=== PATIENT | male | born 1990 | race Caucasian/White ===

== ENCOUNTER → 2016-06-15 | Outpatient (CLI) | payer OTHER ==
[~2016-06-15] MED LIST: DIPH25CA PO
[2016-06-15 13:17] LABS: FREE T4 1.12 NG/DL (0.76-1.46)
== END | disposition home or self-care (01) ==
LOC: M WUC 09:36
PROVIDERS: ATTEND Physician Assistant Medical
DX: F43.23 Adjustment disorder with mixed anxiety and depressed mood (principal)

== ENCOUNTER 2016-08-11 00:11 | Emergency (ER) | payer OTHER ==
[~2016-08-11] VITALS: Ht 177.8 cm; Wt 61.2 kg
[2016-08-11 00:16] VITALS: BP 116/75
[2016-08-11] MEDS ORDERED: LORA2TAB9 (00:27)
[2016-08-11] MEDS ORDERED: CELE20TA PO (00:27)
[2016-08-11] MEDS ORDERED: IBUPROFEN 800 MG TAB PO ONE (00:45)
--- NOTE | 2016-08-11 07:45 | REP ---
Clinical: Trauma. Technique: Curiel and bilateral lateral views of the nasal bones. Findings: Nasal septum is midline. Nasal bones appear intact without acute fracture or dislocation. Overlying soft tissues are grossly unremarkable. Impression: No acute nasal bone fracture identified. Signed by Rodolfo Muniz MD 08/11/2016 07:37 A
== END 2016-08-11 01:11 | disposition home or self-care (01) ==
LOC: M ED 00:59
DX: S00.83XA Contusion of other part of head, initial encounter (principal); W22.8XXA Striking against or struck by other objects, initial encounter; Y92.198 Other place in other specified residential institution as the place of occurrence of the external cause; Y93.89 Activity, other specified; Y99.0 Civilian activity done for income or pay; Z87.820 Personal history of traumatic brain injury; F17.210 Nicotine dependence, cigarettes, uncomplicated; Z88.0 Allergy status to penicillin

== ENCOUNTER 2016-10-16 18:50 | Emergency (ER) | payer OTHER ==
[~2016-10-16] VITALS: Ht 177.8 cm; Wt 61.2 kg
[~2016-10-16 18:50] MED LIST changes: +CELE20TA PO; +LORA2TAB9
[2016-10-16 18:51] VITALS: BP 136/83
[2016-10-16] MEDS ORDERED: metroNIDAZOLE (FLAGYL) 500 MG TAB PO ONE (19:30)
[2016-10-16] MEDS ORDERED: BACTRIM 160MG/800MG DS TAB PO ONE (19:30)
[2016-10-16] MEDS ORDERED: NAPROXEN 250 MG TAB PO ONE (19:30)
[2016-10-16] MEDS ORDERED: FLAG500T PO (19:31)
[2016-10-16] MEDS ORDERED: BACT800T5 PO (19:31)
[2016-10-16] MEDS ORDERED: NAPR500T PO (19:31)
== END 2016-10-16 19:49 | disposition home or self-care (01) ==
LOC: M ED 19:33
DX: S51.851A Open bite of right forearm, initial encounter (principal); W50.3XXA Accidental bite by another person, initial encounter; Y92.10 Unspecified residential institution as the place of occurrence of the external cause; Y93.89 Activity, other specified; Y99.0 Civilian activity done for income or pay; F17.200 Nicotine dependence, unspecified, uncomplicated; Z79.899 Other long term (current) drug therapy; Z88.0 Allergy status to penicillin

== ENCOUNTER → 2016-10-29 | Outpatient (REF) | payer OTHER ==
[~2016-10-29] MED LIST changes: +BACT800T5 PO; +FLAG500T PO; +NAPR500T PO
== END ==
LOC: M LAB REF 15:05
PROVIDERS: ATTEND Physician Assistant Medical
DX: R19.7 Diarrhea, unspecified (principal)

== ENCOUNTER 2016-12-21 06:26 | Emergency (ER) | payer OTHER ==
[~2016-12-21] VITALS: Ht 177.8 cm; Wt 61.4 kg
[2016-12-21] MEDS ORDERED: FLUORESCEIN OPHTH 1 MG STRIP OS ONE (08:00)
[2016-12-21] MEDS ORDERED: TETRACAINE 0.5% OPHTH SOLN 4ML OS ONE (08:00)
[2016-12-21 08:30] VITALS: BP 116/72
[2016-12-21] MEDS ORDERED: CIPROFLOXACIN 0.3% OPHTH OINTMENT OS ONE (08:30)
[2016-12-21] MEDS ORDERED: CIPROFLOXACIN 0.3% OPHTH SOLN 2.5ML OS ONE (08:45)
== END 2016-12-21 08:51 | disposition home or self-care (01) ==
LOC: M ED 06:26
DX: S05.02XA Injury of conjunctiva and corneal abrasion without foreign body, left eye, initial encounter (principal); X58.XXXA Exposure to other specified factors, initial encounter; Y92.828 Other wilderness area as the place of occurrence of the external cause; Y93.89 Activity, other specified; Y99.8 Other external cause status; Z87.820 Personal history of traumatic brain injury; F99 Mental disorder, not otherwise specified; F17.210 Nicotine dependence, cigarettes, uncomplicated; Z88.0 Allergy status to penicillin; Z79.899 Other long term (current) drug therapy

== ENCOUNTER 2017-01-25 11:18 | Emergency (ER) | payer OTHER ==
[~2017-01-25] VITALS: Ht 177.8 cm; Wt 61.3 kg
[2017-01-25 11:18] VITALS: BP 128/81
[2017-01-25] MEDS ORDERED: PEPT262T2 PO (11:29)
[2017-01-25] MEDS ORDERED: LOPE2TAB5 PO (11:29)
[2017-01-25] MEDS ORDERED: ONDANSETRON 4 MG ORAL DISINTEGRATING TAB (S0181) PO ONE (12:15)
[2017-01-25] MEDS ORDERED: GI COCKTAIL 50ML BTL(HYOSCYAMINE/MAALOX/LIDOCAINE VISCOUS)(1:3:1) PO ONE (12:15)
[2017-01-25] MEDS ORDERED: ZOFR4TAB3 PO (12:55)
== END 2017-01-25 13:17 | disposition home or self-care (01) ==
LOC: M ED 11:18
DX: K52.9 Noninfective gastroenteritis and colitis, unspecified (principal); F32.9 Major depressive disorder, single episode, unspecified; Z87.820 Personal history of traumatic brain injury; Z87.19 Personal history of other diseases of the digestive system; F17.210 Nicotine dependence, cigarettes, uncomplicated; Z88.0 Allergy status to penicillin; Z79.899 Other long term (current) drug therapy

== ENCOUNTER 2017-04-06 18:29 | Emergency (ER) | payer OTHER ==
[~2017-04-06] VITALS: Ht 177.8 cm; Wt 63.6 kg
[~2017-04-06 18:29] MED LIST changes: +LOPE2TAB5 PO; +PEPT262T2 PO; +ZOFR4TAB3 PO
[2017-04-06 21:35] VITALS: BP 125/74
== END 2017-04-06 21:39 | disposition home or self-care (01) ==
LOC: M ED 18:29
DX: S01.511A Laceration without foreign body of lip, initial encounter (principal); W50.1XXA Accidental kick by another person, initial encounter; Y92.199 Unspecified place in other specified residential institution as the place of occurrence of the external cause; Y93.F9 Activity, other caregiving; Y99.0 Civilian activity done for income or pay; F41.9 Anxiety disorder, unspecified; F33.9 Major depressive disorder, recurrent, unspecified; F17.210 Nicotine dependence, cigarettes, uncomplicated; Z88.0 Allergy status to penicillin; Z87.820 Personal history of traumatic brain injury

== ENCOUNTER 2017-11-23 06:03 | Inpatient (IN) | payer SELFPAY, OTHER ==
[2017-11-23] MEDS: NS 1,000 ML IV ×6 (06:15→22:45)
[2017-11-23 06:27] LABS: ABG O2 SATURATION 75.4 % (95.0-99.0); ABG STANDARD HCO3 18.4 MEQ/L (22.0-26.0); ABG TOTAL CO2 27.5 MEQ/L (22.0-29.0)
[2017-11-23 06:29] LABS: ABG PARTIAL PRESSURE CO2 80.8 mmHg (35.0-45.0); ABG PARTIAL PRESSURE O2 39.2 mmHg (75.0-100.0); ABG pH (ARTERIAL) 7.108 UNITS (7.350-7.450)
[2017-11-23 06:53] LABS: ALBUMIN 3.7 GM/DL (3.2-5.2); ALBUMIN/GLOBULIN RATIO 1.03 (1.00-1.93); ALKALINE PHOSPHATASE 89 U/L (45-117); ALT/SGPT 42 U/L (12-78); ANION GAP 11 MEQ/L (8-16); AST/SGOT 37 U/L (7-37); BILIRUBIN,DIRECT < 0.1 MG/DL (0.0-0.2); BILIRUBIN,TOTAL 0.2 MG/DL (0.2-1.0); BLOOD UREA NITROGEN 18 MG/DL (7-18); CALCIUM LEVEL 7.7 MG/DL (8.5-10.1); CARBON DIOXIDE LEVEL 31 MEQ/L (21-32); CHLORIDE LEVEL 101 MEQ/L (98-107); CREATININE FOR GFR 2.84 MG/DL (0.70-1.30); GLOMERULAR FILTRATION RATE 28.6 (>60); GLUCOSE, FASTING 97 MG/DL (70-100); LIPASE 178 U/L (73-393); POTASSIUM SERUM 4.7 MEQ/L (3.5-5.1); SODIUM LEVEL 143 MEQ/L (136-145); TOTAL PROTEIN 7.3 GM/DL (6.4-8.2)
[2017-11-23 07:05] LABS: ETHYL ALCOHOL (ETHANOL) < 0.003 % (0.000-0.010)
[2017-11-23 07:16] LABS: LACTIC ACID SEPSIS PROTOCOL 4.2 MMOL/L (0.4-2.0)
[2017-11-23 07:20] LABS: AMPHETAMINES LEVEL URINE NEGATIVE (NEGATIVE); BARBITURATES URINE NEGATIVE (NEGATIVE); BENZODIAZEPINES URINE NEGATIVE (NEGATIVE); CANNABINOIDS URINE NEGATIVE (NEGATIVE); COCAINE METABOLITE URINE NEGATIVE (NEGATIVE); METHADONE URINE NEGATIVE (NEGATIVE); OPIATES URINE NEGATIVE (NEGATIVE); PHENCYCLIDINE URINE NEGATIVE (NEGATIVE)
[2017-11-23 07:21] LABS: KETONE, URINE AUTO RFX NEGATIVE (NEGATIVE); LEUKOCYTE ESTERASE UR AUTO RFX NEGATIVE (NEGATIVE); NITRITE, URINE AUTO RFX NEGATIVE (NEGATIVE); RBC, URINE AUTO RFX 1 /HPF (0-3); SQUAM EPITHELIAL CELL UR AURFX 1 /HPF (0-6); WBC, URINE AUTO RFX 1 /HPF (0-3)
[2017-11-23] MEDS: NS IV (07:28)
[2017-11-23] MEDS: DILUENT IV (07:28)
[2017-11-23] MEDS: CEFEPIME HCL 2 GM in D5W MINI-BAG PLUS 50 ML IV (07:35)
[2017-11-23 07:38] LABS: AMYLASE 296 U/L (25-115); C REACTIVE PROTEIN QUANTITATIV 0.91 MG/DL (0.00-0.30); CK-MB VALUE MASS 11.1 NG/ML (<3.6); CPK CREATINE PHOSPHOKINASE 755 U/L (39-308); MB/CK RELATIVE INDEX 1.47 (< OR =4)
[2017-11-23 07:42] LABS: ABG BASE EXCESS -11.9 (-2.0-2.0); ABG HCO3 17.2 MEQ/L (22.0-26.0); ABG O2 SATURATION 97.9 % (95.0-99.0); ABG PARTIAL PRESSURE CO2 51.5 mmHg (35.0-45.0); ABG PARTIAL PRESSURE O2 108.8 mmHg (75.0-100.0); ABG STANDARD HCO3 15.3 MEQ/L (22.0-26.0); ABG TOTAL CO2 18.8 MEQ/L (22.0-29.0)
[2017-11-23 07:45] LABS: ABG pH (ARTERIAL) 7.142 UNITS (7.350-7.450)
[2017-11-23 08:11] LABS: TROPONIN I 0.63 NG/ML (< 0.10)
[2017-11-23 08:12] LABS: HEMATOCRIT 47.9 % (42.0-52.0); HEMOGLOBIN 16.1 g/dl (13.5-17.5); MEAN CORPUSCULAR HEMOGLOBIN 31.7 pg (27.0-33.0); MEAN CORPUSCULAR HGB CONC 33.6 g/dl (32.0-36.5); MEAN CORPUSCULAR VOLUME 94.3 fl (80.0-96.0); PLATELET COUNT, AUTOMATED 247 10^3/uL (150-450); RED BLOOD COUNT 5.08 10^6/uL (4.30-6.10); RED CELL DISTRIBUTION WIDTH 11.9 % (11.5-14.5); WHITE BLOOD COUNT 5.1 10^3/uL (4.0-10.0)
[2017-11-23 08:14] LABS: ADD MANUAL DIFFER YES; DIFF SLIDE NUMBER 91; POSITIVE MORPH POS FLAG
[2017-11-23 08:22] LABS: CK-MB VALUE MASS 15.1 NG/ML (<3.6); CPK CREATINE PHOSPHOKINASE 1140 U/L (39-308); MB/CK RELATIVE INDEX 1.32 (< OR =4)
[2017-11-23 08:35] LABS: ATYPICAL LYMPH 1 % (0-5); BANDS 2 % (< 11); LYMPHOCYTES 12 % (16-52); MONOCYTES 7 % (0-8); NEUTROPHILS 78 % (35-75); PARTIAL THROMBOPLASTIN TIME 25.9 SECONDS (25.4-37.6); PLATELET ESTIMATE NORMAL (NORMAL)
[2017-11-23 08:45] LABS: INR 1.16
[2017-11-23 08:58] LABS: ABG BASE EXCESS -9.2 (-2.0-2.0); ABG HCO3 20.2 MEQ/L (22.0-26.0); ABG O2 SATURATION 97.9 % (95.0-99.0); ABG PARTIAL PRESSURE CO2 58.5 mmHg (35.0-45.0); ABG STANDARD HCO3 17.2 MEQ/L (22.0-26.0)
[2017-11-23 09:00] LABS: ABG pH (ARTERIAL) 7.157 UNITS (7.350-7.450)
[2017-11-23] MEDS: MULTIVITAMINS/MINERALS THERAP 1 TAB PO (09:00)
[2017-11-23] MEDS: THIAMINE 100 MG TAB PO (09:00)
[2017-11-23] MEDS: FOLIC ACID 1 MG TAB PO (09:00)
[2017-11-23] MEDS ORDERED: NOREPINEPHRINE 4 MG/4 ML AMP As Ordered (09:31)
[2017-11-23] MEDS: NOREPINEPHRINE BITARTRATE 8 MG in D5W 492 ML IV (10:00)
[2017-11-23] MEDS ORDERED: ONDANSETRON 4MG/2ML VIAL (J2405) IV (10:00)
[2017-11-23] MEDS ORDERED: levETIRAcetam INJection 1,000 MG in D5W 100 ML IV (11:00)
[2017-11-23 11:42] LABS: OSMOLALITY URINE 365 MOSM/KG (500-800)
[2017-11-23 11:53] LABS: CHLORIDE,RANDOM URINE 137 MEQ/L; CREATININE,RANDOM URINE 54.8 MG/DL; POTASSIUM RANDOM URINE 31.8 MEQ/L; SODIUM,RANDOM URINE 107 MEQ/L; TOTAL PROTEIN,RANDOM URINE 20.4 MG/DL (0.0-12.0)
[2017-11-23] MEDS: MEROPENEM INJ 1 GM in APPROPRIATE DILUENT 1 EA IV (12:18)
[2017-11-23] MEDS: NICOTINE 14 MG/24 HR TRANSDERMAL TD (12:19)
[2017-11-23] MEDS: PANTOPRAZOLE 40MG INJ (PROTONIX) (C9113) IV (12:19)
[2017-11-23 12:40] LABS: ABG BASE EXCESS -6.8 (-2.0-2.0); ABG HCO3 21.5 MEQ/L (22.0-26.0); ABG O2 SATURATION 98.6 % (95.0-99.0); ABG PARTIAL PRESSURE O2 129.9 mmHg (75.0-100.0); ABG STANDARD HCO3 19.1 MEQ/L (22.0-26.0); ABG TOTAL CO2 23.2 MEQ/L (22.0-29.0)
[2017-11-23 12:41] LABS: ABG pH (ARTERIAL) 7.218 UNITS (7.350-7.450)
[2017-11-23 12:55] LABS: CK-MB VALUE MASS 43.7 NG/ML (<3.6); CPK CREATINE PHOSPHOKINASE 3377 U/L (39-308); MB/CK RELATIVE INDEX 1.29 (< OR =4)
[2017-11-23] MEDS: SENOKOT S TAB PO ×2 (13:28→20:09)
[2017-11-23] MEDS: VALPROATE SOD INJ 500 MG in D5W 50 ML IV ×2 (13:40→23:46)
[2017-11-23] MEDS: IPRATROPIUM 0.5MG/ALBUTEROL 2.5MG INH SOL UD 3ML (DUONEB)(J7620) NEB ×2 (14:05→19:32)
[2017-11-23 14:21] LABS: HIV 1&2 SCREEN CENTAUR NEGATIVE (NEGATIVE)
[2017-11-23] MEDS: levETIRAcetam INJection 1,000 MG in D5W 100 ML IV ×2 (14:27→22:45)
[2017-11-23] MEDS: HEPARIN SOD (PORCINE) 5000 UNITS/ML VIAL SC ×2 (14:28→21:13)
[2017-11-23] MEDS: VANCOMYCIN HCL 1,000 MG, VIAL MATE ADAPTER 1 EACH in D5W 250 ML IV (14:28)
[2017-11-23] MEDS: MULTIVITAMIN -ADULT INJECTION 10 ML, THIAMINE INJection 100 MG, FOLIC ACID 1 MG in NS 1... IV (14:45)
[2017-11-23] MEDS ORDERED: SODIUM CHLORIDE 0.9% INJ 10 ML SYR IV (15:15)
[2017-11-23] MEDS ORDERED: SLF 3 ML SYR IV (15:15)
[2017-11-23] MEDS: VANCOMYCIN HCL 750 MG, VIAL MATE ADAPTER 1 EACH in D5W 250 ML IV (17:15)
[2017-11-23] MEDS: CitaloPRAM (CeleXA) 20 MG TAB PO (20:10)
[2017-11-23] MEDS: ACETAMINOPHEN TAB 650MG DOSE (2X325MG) PO (20:10)
[2017-11-23] MEDS: MIRTAZAPINE 15 MG TAB PO (20:10)
[2017-11-23] MEDS ORDERED: levETIRAcetam 250MG TABLET (KEPPRA) PO (21:00)
[2017-11-23] MEDS: SLF 3 ML SYR IV (21:13)
[2017-11-23] MEDS: SODIUM CHLORIDE 0.9% INJ 10 ML SYR IV (21:13)
[2017-11-23] MEDS ORDERED: NOREPINEPHRINE BITARTRATE 8 MG in D5W 492 ML IV (22:00)
[2017-11-24] MEDS: MEROPENEM INJ 1 GM in APPROPRIATE DILUENT 1 EA IV ×2 (00:32→13:33)
[2017-11-24 00:47] LABS: CK-MB VALUE MASS 36.1 NG/ML (<3.6)
[2017-11-24] MEDS: VANCOMYCIN HCL 1,000 MG, VIAL MATE ADAPTER 1 EACH in D5W 250 ML IV ×2 (01:10→14:32)
[2017-11-24 01:14] LABS: CPK CREATINE PHOSPHOKINASE 3895 U/L (39-308); MB/CK RELATIVE INDEX 0.92 (< OR =4)
[2017-11-24] MEDS: IPRATROPIUM 0.5MG/ALBUTEROL 2.5MG INH SOL UD 3ML (DUONEB)(J7620) NEB ×5 (01:19→19:15)
[2017-11-24] MEDS: SLF 3 ML SYR IV ×3 (05:05→21:08)
[2017-11-24] MEDS: HEPARIN SOD (PORCINE) 5000 UNITS/ML VIAL SC ×3 (05:05→21:08)
[2017-11-24] MEDS: SODIUM CHLORIDE 0.9% INJ 10 ML SYR IV ×3 (05:05→21:08)
[2017-11-24 05:08] LABS: HEMATOCRIT 33.9 % (42.0-52.0); MEAN CORPUSCULAR HEMOGLOBIN 31.7 pg (27.0-33.0); MEAN CORPUSCULAR HGB CONC 34.8 g/dl (32.0-36.5); MEAN CORPUSCULAR VOLUME 91.1 fl (80.0-96.0); RED BLOOD COUNT 3.72 10^6/uL (4.30-6.10); RED CELL DISTRIBUTION WIDTH 12.2 % (11.5-14.5); WHITE BLOOD COUNT 10.1 10^3/uL (4.0-10.0)
[2017-11-24 05:37] LABS: HEMOGLOBIN 11.8 g/dl (13.5-17.5); PLATELET COUNT, AUTOMATED 136 10^3/uL (150-450)
[2017-11-24] MEDS: NS 1,000 ML IV ×3 (05:45→21:23)
[2017-11-24 05:51] LABS: ALBUMIN 2.2 GM/DL (3.2-5.2); ALBUMIN/GLOBULIN RATIO 0.92 (1.00-1.93); ALKALINE PHOSPHATASE 49 U/L (45-117); ALT/SGPT 40 U/L (12-78); ANION GAP 7 MEQ/L (8-16); AST/SGOT 94 U/L (7-37); BILIRUBIN,TOTAL 0.4 MG/DL (0.2-1.0); BLOOD UREA NITROGEN 14 MG/DL (7-18); CALCIUM LEVEL 6.6 MG/DL (8.5-10.1); CARBON DIOXIDE LEVEL 27 MEQ/L (21-32); CHLORIDE LEVEL 106 MEQ/L (98-107); CREATININE FOR GFR 1.05 MG/DL (0.70-1.30); GLUCOSE, FASTING 92 MG/DL (70-100); MAGNESIUM LEVEL 1.4 MG/DL (1.8-2.4); POTASSIUM SERUM 3.9 MEQ/L (3.5-5.1); SODIUM LEVEL 140 MEQ/L (136-145); TOTAL PROTEIN 4.6 GM/DL (6.4-8.2)
[2017-11-24 05:52] LABS: GLOMERULAR FILTRATION RATE > 60.0 (>60)
[2017-11-24] MEDS: ACETAMINOPHEN TAB 650MG DOSE (2X325MG) PO ×3 (07:07→22:56)
[2017-11-24 07:48] LABS: CK-MB VALUE MASS 24.1 NG/ML (<3.6); CPK CREATINE PHOSPHOKINASE 2750 U/L (39-308); MB/CK RELATIVE INDEX 0.87 (< OR =4); TROPONIN I 0.97 NG/ML (< 0.10)
[2017-11-24 08:20] LABS: ABG BASE EXCESS -1.1 (-2.0-2.0); ABG HCO3 24.7 MEQ/L (22.0-26.0); ABG O2 SATURATION 98.7 % (95.0-99.0); ABG PARTIAL PRESSURE CO2 45.6 mmHg (35.0-45.0); ABG PARTIAL PRESSURE O2 111.6 mmHg (75.0-100.0); ABG STANDARD HCO3 23.6 MEQ/L (22.0-26.0); ABG TOTAL CO2 26.1 MEQ/L (22.0-29.0); ABG pH (ARTERIAL) 7.352 UNITS (7.350-7.450)
[2017-11-24] MEDS: MAG SULF 1GM/100ML (MAG RUN) 1 GM in APPROPRIATE DILUENT 1 EA IV ×2 (08:30→09:41)
[2017-11-24] MEDS: MULTIVITAMINS/MINERALS THERAP 1 TAB PO (09:12)
[2017-11-24] MEDS: THIAMINE 100 MG TAB PO (09:12)
[2017-11-24] MEDS: FOLIC ACID 1 MG TAB PO (09:12)
[2017-11-24] MEDS: SENOKOT S TAB PO ×2 (09:12→21:00)
[2017-11-24] MEDS: PANTOPRAZOLE 40MG INJ (PROTONIX) (C9113) IV (11:38)
[2017-11-24] MEDS: levETIRAcetam INJection 1,000 MG in D5W 100 ML IV ×2 (11:38→23:00)
[2017-11-24] MEDS: VALPROATE SOD INJ 500 MG in D5W 50 ML IV (12:58)
[2017-11-24 13:52] LABS: BEDSIDE GLUCOSE 107 MG/DL (70-105)
[2017-11-24] MEDS: MIRTAZAPINE 15 MG TAB PO (21:00)
[2017-11-24] MEDS: CitaloPRAM (CeleXA) 20 MG TAB PO (21:00)
[2017-11-25] MEDS: MEROPENEM INJ 1 GM in APPROPRIATE DILUENT 1 EA IV ×2 (01:00→13:15)
[2017-11-25] MEDS: VANCOMYCIN HCL 1,000 MG, VIAL MATE ADAPTER 1 EACH in D5W 250 ML IV ×4 (02:15→23:00)
[2017-11-25] MEDS: IPRATROPIUM 0.5MG/ALBUTEROL 2.5MG INH SOL UD 3ML (DUONEB)(J7620) NEB ×2 (03:30→07:41)
[2017-11-25] MEDS: NS 1,000 ML IV (04:19)
[2017-11-25 05:47] LABS: HEMATOCRIT 32.9 % (42.0-52.0); HEMOGLOBIN 11.7 g/dl (13.5-17.5); MEAN CORPUSCULAR HEMOGLOBIN 31.6 pg (27.0-33.0); MEAN CORPUSCULAR HGB CONC 35.6 g/dl (32.0-36.5); MEAN CORPUSCULAR VOLUME 88.9 fl (80.0-96.0); PLATELET COUNT, AUTOMATED 148 10^3/uL (150-450); WHITE BLOOD COUNT 9.9 10^3/uL (4.0-10.0)
[2017-11-25] MEDS: HEPARIN SOD (PORCINE) 5000 UNITS/ML VIAL SC ×3 (06:00→21:43)
[2017-11-25] MEDS: SODIUM CHLORIDE 0.9% INJ 10 ML SYR IV ×3 (06:00→21:44)
[2017-11-25] MEDS: SLF 3 ML SYR IV ×3 (06:00→21:44)
[2017-11-25 06:13] LABS: ALBUMIN 2.1 GM/DL (3.2-5.2); ALBUMIN/GLOBULIN RATIO 0.88 (1.00-1.93); ALKALINE PHOSPHATASE 63 U/L (45-117); ALT/SGPT 33 U/L (12-78); ANION GAP 7 MEQ/L (8-16); AST/SGOT 50 U/L (7-37); BILIRUBIN,TOTAL 0.6 MG/DL (0.2-1.0); BLOOD UREA NITROGEN 6 MG/DL (7-18); CALCIUM LEVEL 7.7 MG/DL (8.5-10.1); CARBON DIOXIDE LEVEL 30 MEQ/L (21-32); CHLORIDE LEVEL 105 MEQ/L (98-107); CREATININE FOR GFR 0.79 MG/DL (0.70-1.30); GLOMERULAR FILTRATION RATE > 60.0 (>60); GLUCOSE, FASTING 97 MG/DL (70-100); MAGNESIUM LEVEL 2.2 MG/DL (1.8-2.4); POTASSIUM SERUM 3.7 MEQ/L (3.5-5.1); SODIUM LEVEL 142 MEQ/L (136-145); TOTAL PROTEIN 4.5 GM/DL (6.4-8.2)
[2017-11-25 07:42] LABS: ABG BASE EXCESS 4.6 (-2.0-2.0); ABG HCO3 29.1 MEQ/L (22.0-26.0); ABG O2 SATURATION 95.3 % (95.0-99.0); ABG PARTIAL PRESSURE CO2 43.3 mmHg (35.0-45.0); ABG STANDARD HCO3 28.5 MEQ/L (22.0-26.0); ABG TOTAL CO2 30.5 MEQ/L (22.0-29.0); ABG pH (ARTERIAL) 7.446 UNITS (7.350-7.450)
[2017-11-25] MEDS: THIAMINE 100 MG TAB PO (09:34)
[2017-11-25] MEDS: SENOKOT S TAB PO ×2 (09:34→21:00)
[2017-11-25] MEDS: MULTIVITAMINS/MINERALS THERAP 1 TAB PO (09:34)
[2017-11-25] MEDS: FOLIC ACID 1 MG TAB PO (09:34)
[2017-11-25] MEDS ORDERED: ALBUTEROL SULFATE 2.5 MG/0.5 ML INH NEB SOLN NEB (10:15)
[2017-11-25] MEDS: PANTOPRAZOLE 40MG INJ (PROTONIX) (C9113) IV (11:00)
[2017-11-25] MEDS: levETIRAcetam INJection 1,000 MG in D5W 100 ML IV ×2 (11:00→23:00)
[2017-11-25] MEDS: VALPROATE SOD INJ 500 MG in D5W 50 ML IV ×2 (11:48)
[2017-11-25] MEDS: ALBUTEROL SULFATE 2.5 MG/0.5 ML INH NEB SOLN NEB ×2 (14:00→20:15)
[2017-11-25 14:10] LABS: VANCOMYCIN LEVEL TROUGH 5.6 UG/ML (10.0-20.0)
[2017-11-25] MEDS: CitaloPRAM (CeleXA) 20 MG TAB PO (21:00)
[2017-11-25] MEDS: MIRTAZAPINE 15 MG TAB PO (21:00)
[2017-11-26] MEDS: VALPROATE SOD INJ 500 MG in D5W 50 ML IV
[2017-11-26] MEDS: MEROPENEM INJ 1 GM in APPROPRIATE DILUENT 1 EA IV ×3 (01:00→21:00)
[2017-11-26] MEDS: ALBUTEROL SULFATE 2.5 MG/0.5 ML INH NEB SOLN NEB ×4 (02:09→21:10)
[2017-11-26] MEDS: HEPARIN SOD (PORCINE) 5000 UNITS/ML VIAL SC ×3 (05:27→21:02)
[2017-11-26] MEDS: SODIUM CHLORIDE 0.9% INJ 10 ML SYR IV ×3 (05:28→21:04)
[2017-11-26] MEDS: SLF 3 ML SYR IV ×3 (05:28→21:02)
[2017-11-26 05:37] LABS: HEMATOCRIT 34.5 % (42.0-52.0); MEAN CORPUSCULAR HEMOGLOBIN 30.8 pg (27.0-33.0); MEAN CORPUSCULAR HGB CONC 34.8 g/dl (32.0-36.5); MEAN CORPUSCULAR VOLUME 88.7 fl (80.0-96.0); PLATELET COUNT, AUTOMATED 172 10^3/uL (150-450); RED BLOOD COUNT 3.89 10^6/uL (4.30-6.10); RED CELL DISTRIBUTION WIDTH 11.7 % (11.5-14.5); WHITE BLOOD COUNT 9.5 10^3/uL (4.0-10.0)
[2017-11-26 06:12] LABS: ALBUMIN 2.1 GM/DL (3.2-5.2); ALBUMIN/GLOBULIN RATIO 0.78 (1.00-1.93); ALKALINE PHOSPHATASE 89 U/L (45-117); ALT/SGPT 30 U/L (12-78); ANION GAP 4 MEQ/L (8-16); AST/SGOT 31 U/L (7-37); BILIRUBIN,TOTAL 0.6 MG/DL (0.2-1.0); BLOOD UREA NITROGEN 7 MG/DL (7-18); CALCIUM LEVEL 7.4 MG/DL (8.5-10.1); CARBON DIOXIDE LEVEL 32 MEQ/L (21-32); CHLORIDE LEVEL 108 MEQ/L (98-107); CREATININE FOR GFR 0.68 MG/DL (0.70-1.30); GLOMERULAR FILTRATION RATE > 60.0 (>60); GLUCOSE, FASTING 96 MG/DL (70-100); MAGNESIUM LEVEL 1.9 MG/DL (1.8-2.4); POTASSIUM SERUM 3.4 MEQ/L (3.5-5.1); SODIUM LEVEL 144 MEQ/L (136-145); TOTAL PROTEIN 4.8 GM/DL (6.4-8.2)
[2017-11-26] MEDS: VANCOMYCIN HCL 1,000 MG, VIAL MATE ADAPTER 1 EACH in D5W 250 ML IV ×3 (08:42→23:47)
[2017-11-26] MEDS: POTASSIUM CHLORIDE 10 MEQ SR TABLET PO (08:42)
[2017-11-26] MEDS: levETIRAcetam 250MG TABLET (KEPPRA) PO ×2 (08:42→21:01)
[2017-11-26] MEDS: THIAMINE 100 MG TAB PO (08:43)
[2017-11-26] MEDS: MULTIVITAMINS/MINERALS THERAP 1 TAB PO (08:43)
[2017-11-26] MEDS: SENOKOT S TAB PO ×2 (08:43→21:00)
[2017-11-26] MEDS: FOLIC ACID 1 MG TAB PO (08:43)
[2017-11-26] MEDS: PANTOPRAZOLE 40MG TAB (PROTONIX) PO (11:29)
[2017-11-26] MEDS: DIVALPROEX 500 MG TAB PO ×2 (11:29→21:02)
[2017-11-26 15:49] LABS: VANCOMYCIN LEVEL TROUGH 10.9 UG/ML (10.0-20.0)
[2017-11-26] MEDS: CitaloPRAM (CeleXA) 20 MG TAB PO (21:02)
[2017-11-26] MEDS: MIRTAZAPINE 15 MG TAB PO (21:02)
[2017-11-27 00:07] LABS: LEVETIRACETAM (KEPPRA) 6.7 ug/mL (10.0-40.0)
[2017-11-27] MEDS: ALBUTEROL SULFATE 2.5 MG/0.5 ML INH NEB SOLN NEB ×4 (02:41→21:03)
[2017-11-27] MEDS: MEROPENEM INJ 1 GM in APPROPRIATE DILUENT 1 EA IV (05:11)
[2017-11-27] MEDS: HEPARIN SOD (PORCINE) 5000 UNITS/ML VIAL SC ×3 (05:12→20:55)
[2017-11-27] MEDS: SODIUM CHLORIDE 0.9% INJ 10 ML SYR IV ×3 (05:12→20:55)
[2017-11-27] MEDS: SLF 3 ML SYR IV ×3 (05:12→22:00)
[2017-11-27] MEDS: VANCOMYCIN HCL 1,000 MG, VIAL MATE ADAPTER 1 EACH in D5W 250 ML IV (06:20)
[2017-11-27 06:30] LABS: HEMATOCRIT 36.5 % (42.0-52.0); HEMOGLOBIN 12.5 g/dl (13.5-17.5); MEAN CORPUSCULAR HEMOGLOBIN 30.6 pg (27.0-33.0); MEAN CORPUSCULAR HGB CONC 34.2 g/dl (32.0-36.5); MEAN CORPUSCULAR VOLUME 89.2 fl (80.0-96.0); PLATELET COUNT, AUTOMATED 171 10^3/uL (150-450); RED BLOOD COUNT 4.09 10^6/uL (4.30-6.10); RED CELL DISTRIBUTION WIDTH 11.8 % (11.5-14.5); WHITE BLOOD COUNT 6.6 10^3/uL (4.0-10.0)
[2017-11-27 06:53] LABS: ALBUMIN 2.3 GM/DL (3.2-5.2); ALBUMIN/GLOBULIN RATIO 0.79 (1.00-1.93); ALKALINE PHOSPHATASE 93 U/L (45-117); ALT/SGPT 27 U/L (12-78); ANION GAP 6 MEQ/L (8-16); AST/SGOT 17 U/L (7-37); BILIRUBIN,TOTAL 0.5 MG/DL (0.2-1.0); BLOOD UREA NITROGEN 11 MG/DL (7-18); C REACTIVE PROTEIN QUANTITATIV 8.74 MG/DL (0.00-0.30); CALCIUM LEVEL 7.7 MG/DL (8.5-10.1); CARBON DIOXIDE LEVEL 30 MEQ/L (21-32); CHLORIDE LEVEL 108 MEQ/L (98-107); CREATININE FOR GFR 0.68 MG/DL (0.70-1.30); GLOMERULAR FILTRATION RATE > 60.0 (>60); GLUCOSE, FASTING 97 MG/DL (70-100); MAGNESIUM LEVEL 2.2 MG/DL (1.8-2.4); POTASSIUM SERUM 3.5 MEQ/L (3.5-5.1); SODIUM LEVEL 144 MEQ/L (136-145); TOTAL PROTEIN 5.2 GM/DL (6.4-8.2)
[2017-11-27] MEDS: levETIRAcetam 250MG TABLET (KEPPRA) PO ×2 (09:40→20:54)
[2017-11-27] MEDS: POTASSIUM CHLORIDE 10 MEQ SR TABLET PO (09:40)
[2017-11-27] MEDS: FOLIC ACID 1 MG TAB PO (09:40)
[2017-11-27] MEDS: MULTIVITAMINS/MINERALS THERAP 1 TAB PO (09:40)
[2017-11-27] MEDS: DIVALPROEX 500 MG TAB PO ×2 (09:41→20:54)
[2017-11-27] MEDS: PANTOPRAZOLE 40MG TAB (PROTONIX) PO (09:41)
[2017-11-27] MEDS: cefTRIAXone SOD 2 GM in D5W MINI-BAG PLUS 50 ML IV (09:41)
[2017-11-27] MEDS: THIAMINE 100 MG TAB PO (09:41)
[2017-11-27] MEDS: SENOKOT S TAB PO ×2 (09:42→20:54)
[2017-11-27] MEDS: CitaloPRAM (CeleXA) 20 MG TAB PO (20:54)
[2017-11-27] MEDS: MIRTAZAPINE 15 MG TAB PO (20:54)
[2017-11-28] MEDS: ALBUTEROL SULFATE 2.5 MG/0.5 ML INH NEB SOLN NEB ×3 (00:29→13:30)
[2017-11-28] MEDS: SODIUM CHLORIDE 0.9% INJ 10 ML SYR IV ×2 (05:21→13:34)
[2017-11-28] MEDS: SLF 3 ML SYR IV ×2 (05:31→13:33)
[2017-11-28] MEDS: HEPARIN SOD (PORCINE) 5000 UNITS/ML VIAL SC ×2 (05:31→13:33)
[2017-11-28 05:37] LABS: HEMOGLOBIN 13.7 g/dl (13.5-17.5); MEAN CORPUSCULAR HEMOGLOBIN 31.3 pg (27.0-33.0); MEAN CORPUSCULAR HGB CONC 35.1 g/dl (32.0-36.5); PLATELET COUNT, AUTOMATED 176 10^3/uL (150-450); RED BLOOD COUNT 4.38 10^6/uL (4.30-6.10); RED CELL DISTRIBUTION WIDTH 11.9 % (11.5-14.5); WHITE BLOOD COUNT 7.5 10^3/uL (4.0-10.0)
[2017-11-28 06:10] LABS: ALBUMIN 2.6 GM/DL (3.2-5.2); ALBUMIN/GLOBULIN RATIO 0.81 (1.00-1.93); ALKALINE PHOSPHATASE 98 U/L (45-117); ALT/SGPT 28 U/L (12-78); ANION GAP 9 MEQ/L (8-16); AST/SGOT 20 U/L (7-37); BILIRUBIN,TOTAL 0.3 MG/DL (0.2-1.0); BLOOD UREA NITROGEN 18 MG/DL (7-18); C REACTIVE PROTEIN QUANTITATIV 4.01 MG/DL (0.00-0.30); CARBON DIOXIDE LEVEL 25 MEQ/L (21-32); CHLORIDE LEVEL 108 MEQ/L (98-107); CREATININE FOR GFR 0.76 MG/DL (0.70-1.30); GLOMERULAR FILTRATION RATE > 60.0 (>60); GLUCOSE, FASTING 98 MG/DL (70-100); MAGNESIUM LEVEL 2.3 MG/DL (1.8-2.4); POTASSIUM SERUM 3.7 MEQ/L (3.5-5.1); SODIUM LEVEL 142 MEQ/L (136-145); TOTAL PROTEIN 5.8 GM/DL (6.4-8.2)
[2017-11-28] MEDS: cefTRIAXone SOD 2 GM in D5W MINI-BAG PLUS 50 ML IV (09:26)
[2017-11-28] MEDS: THIAMINE 100 MG TAB PO (09:26)
[2017-11-28] MEDS: levETIRAcetam 250MG TABLET (KEPPRA) PO (09:26)
[2017-11-28] MEDS: DIVALPROEX 500 MG TAB PO (09:27)
[2017-11-28] MEDS: SENOKOT S TAB PO (09:27)
[2017-11-28] MEDS: MULTIVITAMINS/MINERALS THERAP 1 TAB PO (09:27)
[2017-11-28] MEDS: FOLIC ACID 1 MG TAB PO (09:27)
[2017-11-28] MEDS: PANTOPRAZOLE 40MG TAB (PROTONIX) PO (09:27)
== END 2017-11-28 14:31 | disposition home or self-care (01) | DRG 720 ==
LOC: M MS5PR 11-26 11:37 → M ED 06:03 → M ED INP 09:49 → M ICU 11:41
PROVIDERS: Hospitalist
PROC: 02HV33Z Insertion of Infusion Device into Superior Vena Cava, Percutaneous Approach (ICD-10-PCS; principal; 2017-11-23)
DX: A41.9 Sepsis, unspecified organism (principal); J69.0 Pneumonitis due to inhalation of food and vomit; J96.01 Acute respiratory failure with hypoxia; J96.02 Acute respiratory failure with hypercapnia; R65.21 Severe sepsis with septic shock; G93.40 Encephalopathy, unspecified; E87.4 Mixed disorder of acid-base balance; N17.9 Acute kidney failure, unspecified; J15.211 Pneumonia due to Methicillin susceptible Staphylococcus aureus; G40.B09 Juvenile myoclonic epilepsy, not intractable, without status epilepticus; F32.9 Major depressive disorder, single episode, unspecified; F41.9 Anxiety disorder, unspecified; F17.210 Nicotine dependence, cigarettes, uncomplicated; Z79.899 Other long term (current) drug therapy; Z88.0 Allergy status to penicillin